=== PATIENT | female | born 1985 | race Caucasian/White ===

== ENCOUNTER → 2017-02-05 | Outpatient (CLI) | payer OTHER | LOC: FIMAGING 09:36 | PROVIDERS: ATTEND Obstetrics & Gynecology | DX: O35.8XX0 Maternal care for other (suspected) fetal abnormality and damage, not applicable or unspecified (principal); Z3A.32 32 weeks gestation of pregnancy; Z87.59 Personal history of other complications of pregnancy, childbirth and the puerperium ==

== ENCOUNTER 2017-03-20 16:52 | Observation (INO) | payer OTHER ==
[2017-03-20 18:34] LABS: % IMMATURE GRANULYOCYTES 1.6 % (0.0-1.1); ABSOLUTE IMMATURE GRANULOCYTES 0.13 10^3/uL (0.00-0.10); ADD DIFF? NO; ADD MORPH? NO; ADD SCAN? NO; ATYPICAL LYMPHOCYTE FLAG 20 (0-99); FRAGMENT RBC FLAG 0 (0-99); HEMATOCRIT 35.1 % (38.0-47.0); HEMOGLOBIN 12.4 g/dL (12.6-16.3); LEFT SHIFT FLG 10 (0-99); LIPEMIA HEMOLYSIS FLAG 90 (0-99); MEAN CELL HEMOGLOBIN CONCENTR. 35.3 g/dL (32.4-36.7); MEAN CELL VOLUME 90.5 fL (81.5-99.8); MEAN PLATELET VOLUME 12.4 fL (8.7-11.7); PLATELET CLUMPS FLAG 10 (0-99); PLATELET COUNT 143 10^3/uL (150-400); RED BLOOD CELL COUNT 3.88 10^6/uL (4.18-5.33); RED CELL DISTRIBUTION WIDTH 12.6 % (11.5-15.2)
[2017-03-20 18:39] LABS: ALANINE AMINOTRANSFERASE 27 IU/L (9-52); ASPARTATE AMINOTRANSFERASE 23 IU/L (14-46); BILIRUBIN,TOTAL 0.2 mg/dL (0.1-1.4); BILIRUBIN-CONJUGATED 0.1 mg/dL (0.0-0.5); BILIRUBIN-UNCONJUGATED 0.1 mg/dL (0.0-1.1); CREATININE 0.6 mg/dL (0.6-1.0); GLOMERULAR FILTRATION RATE > 60; LACTATE DEHYDROGENASE 331 IU/L (313-618); URIC ACID 3.6 mg/dL (2.5-6.8)
== END 2017-03-20 19:20 | disposition home or self-care (01) ==
LOC: FLD 16:52
PROVIDERS: ADMIT Obstetrics & Gynecology; ATTEND Obstetrics & Gynecology
DX: O28.9 Unspecified abnormal findings on antenatal screening of mother (principal); R03.0 Elevated blood-pressure reading, without diagnosis of hypertension; Z3A.38 38 weeks gestation of pregnancy
CPT/HCPCS: 59025; G0378

== ENCOUNTER 2017-03-21 00:52 | Inpatient (IN) | payer OTHER ==
[2017-03-21] MEDS ORDERED: HYDROCODONE/APAP 5/325 TAB PO ONE (01:30)
[2017-03-21 01:40] LABS: % IMMATURE GRANULYOCYTES 1.6 % (0.0-1.1); ABSOLUTE IMMATURE GRANULOCYTES 0.15 10^3/uL (0.00-0.10); ADD DIFF? NO; ADD MORPH? NO; ADD SCAN? NO; ATYPICAL LYMPHOCYTE FLAG 20 (0-99); FRAGMENT RBC FLAG 0 (0-99); HEMATOCRIT 34.4 % (38.0-47.0); HEMOGLOBIN 12.1 g/dL (12.6-16.3); LEFT SHIFT FLG 10 (0-99); LIPEMIA HEMOLYSIS FLAG 90 (0-99); MEAN CELL HEMOGLOBIN 31.9 pg (27.9-34.1); MEAN CELL HEMOGLOBIN CONCENTR. 35.2 g/dL (32.4-36.7); MEAN CELL VOLUME 90.8 fL (81.5-99.8); PLATELET CLUMPS FLAG 0 (0-99); PLATELET COUNT 112 10^3/uL (150-400); RED BLOOD CELL COUNT 3.79 10^6/uL (4.18-5.33); RED CELL DISTRIBUTION WIDTH 12.7 % (11.5-15.2)
[2017-03-21 01:55] LABS: ALANINE AMINOTRANSFERASE 29 IU/L (9-52); ASPARTATE AMINOTRANSFERASE 20 IU/L (14-46); CREATININE 0.8 mg/dL (0.6-1.0); GLOMERULAR FILTRATION RATE > 60; LACTATE DEHYDROGENASE 317 IU/L (313-618); URIC ACID 4.2 mg/dL (2.5-6.8)
[2017-03-21] MEDS: CALCIUM CARBONATE 500 MG CHEWABLE TAB PO PRN (02:00)
[2017-03-21] MEDS ORDERED: ONDANSETRON DISINTEGRATING 4 MG TAB PO ONE (02:00)
[2017-03-21] MEDS ORDERED: ACETAMINOPHEN 500 MG TAB PO ONE (02:30)
[2017-03-21] MEDS ORDERED: fentaNYL 100 MCG/2 ML INJ IVP ONE ×2 (02:30→04:45)
[2017-03-21] MEDS ORDERED: LR 500 ML IV ONE (02:30)
--- NOTE | 2017-03-21 03:18 | EDPHY ---
H & P Smoking Status: Never smoked Allergies/Adverse Reactions: amoxicillin [Amoxicillin] Allergy (Severe, Verified 06/20/14 11:17) Rash Sulfa (Sulfonamide Antibiotics) Allergy (Severe, Verified 06/20/14 11:17) Rash reishi mushroom [mushrooms] Allergy (Verified 10/07/14 19:11) quinoa Allergy (Uncoded 10/07/14 19:12) Home Medications: Medication Instructions Recorded Tablet 1 tab PO DAILY 06/20/14 Biotin/Calcium Carbonate [Biotin 1 tab PO DAILY 10/07/14 800 Mcg Tablet] Calcium Carbonate [Tums 500MG (*)] 1 tab PO PRN PRN 10/07/14 Ranitidine HCl [Zantac 75] 1 tab PO PRN PRN 10/07/14 Iron Polysacch/Iron Heme Polyp 28 mg PO DAILY #30 tab 10/12/14 [Bifera] Medical Decision Making ED Course/Re-evaluation: Asked to consult on the patient from labor and delivery. This is a 31-year-old woman who is 29 weeks presenting with several days of worsening headache stiff neck and fever. She was seen at [facility] earlier this evening and discharge with her symptoms worsening. Providers are concerned about possibility of encephalitis or meningitis and centered out for for LP and further evaluation. Gen: Awake, Alert, No Distress HEENT: Nose: no rhinorrhea Eyes: PERRLA, EOMI Mouth: Moist mucosa Neck: Moderate meningismus, no JVD Chest: nontender, lungs clear to auscultation Heart: S1, S2 normal, no murmur Abd: Gravid uterus consistent with dates Back: no CVA tenderness, no midline tenderness Ext: no edema, non-tender Skin: no rash Neuro: CN II-XII intact, Sensation grossly intact, Strength 5/5 in bilateral upper and lower extremities Procedure: Lumbar puncture. Indication: Fever, stiff neck, headache After verbal informed consent from patient explaining the risks including infection, bleeding, and neurologic damage, a lumbar puncture was performed after the patient was prepped and draped in the usual fashion. The back was anesthetized with 1% lidocaine. Approximately 4 cc of clear fluid was obtained. Opening pressure was not obtained. There were no complications. The procedure was performed by myself. CSF sent to the lab. Results will be followed by the labor and delivery team. Patient tolerated procedure well without complications. 0645 CSF results noted. Consistent with a viral meningitis. I have confirmed with the labor and delivery floor that the they have identified those results and are treating accordingly. Dr. Brandon is aware. - Data Points Laboratory Results: Laboratory Results 03/21/17 01:30 03/21/17 01:30 03/21/17 03/21/17 03/21/17 02:10 01:30 01:30 WBC 9.25 10^3/uL 10^3/uL (3.80-9.50) RBC 3.79 10^6/uL L 10^6/uL (4.18-5.33) Hgb 12.1 g/dL L g/dL (12.6-16.3) Hct 34.4 % L % (38.0-47.0) MCV 90.8 fL fL (81.5-99.8) MCH 31.9 pg pg (27.9-34.1) MCHC 35.2 g/dL g/dL (32.4-36.7) RDW 12.7 % % (11.5-15.2) Plt Count 112 10^3/uL L 10^3/uL (150-400) MPV 12.0 fL H fL (8.7-11.7) Neut % (Auto) 72.3 % % (39.3-74.2) Lymph % (Auto) 15.1 % % (15.0-45.0) Glenn % (Auto) 9.5 % % (4.5-13.0) Eos % (Auto) 1.0 % % (0.6-7.6) Baso % (Auto) 0.5 % % (0.3-1.7) Nucleat RBC Rel Count 0.0 % % (0.0-0.2) Absolute Neuts (auto) 6.68 10^3/uL H 10^3/uL (1.70-6.50) Absolute Lymphs (auto) 1.40 10^3/uL 10^3/uL (1.00-3.00) Absolute Monos (auto) 0.88 10^3/uL H 10^3/uL (0.30-0.80) Absolute Eos (auto) 0.09 10^3/uL 10^3/uL (0.03-0.40) Absolute Basos (auto) 0.05 10^3/uL 10^3/uL (0.02-0.10) Absolute Nucleated RBC 0.00 10^3/uL 10^3/uL (0-0.01) Immature Gran % 1.6 % H % (0.0-1.1) Immature Gran # 0.15 10^3/uL H 10^3/uL (0.00-0.10) BUN 10 mg/dL mg/dL (7-23) Creatinine 0.8 mg/dL mg/dL (0.6-1.0) Estimated GFR > 60 Uric Acid 4.2 mg/dL mg/dL (2.5-6.8) AST 20 IU/L IU/L (14-46) ALT 29 IU/L IU/L (9-52) Lactate Dehydrogenase 317 IU/L IU/L (313-618) Nasal Influenza A PCR NEGATIVE FOR FLU A (NEGATIVE) Nasal Influenza B PCR NEGATIVE FOR FLU B (NEGATIVE) Medications Given: Calcium Carbonate (Tums) 500 - 1,000 mg PO Q4 PRN PRN Reason: HEARTBURN Stop: 09/17/17 01:52 Last Admin: 03/21/17 02:00 Dose: 500 mg Discontinued Medications Acetaminophen (Tylenol) 500 mg PO ONCE ONE Stop: 03/21/17 02:31 Last Admin: 03/21/17 02:27 Dose: 500 mg Hydrocodone Bitart/Acetaminophen ([place] 5/325) 1 tab PO ONCE ONE Stop: 03/21/17 01:31 Last Admin: 03/21/17 01:50 Dose: 1 tab Fentanyl (Sublimaze) 50 mcg IVP ONCE ONE Stop: 03/21/17 02:31 Last Admin: 03/21/17 02:27 Dose: 50 mcg Ondansetron HCl (Zofran Odt) 4 mg PO ONCE ONE Stop: 03/21/17 02:01 Last Admin: 03/21/17 01:59 Dose: 4 mg
[2017-03-21 03:37] LABS: CSF APPEARANCE CLEAR (CLEAR); CSF COLOR COLORLESS (COLORLESS)
[2017-03-21 03:45] LABS: PROTEIN, CSF 50 mg/dL (12-60)
[2017-03-21 03:46] LABS: WBC, CSF 54 /mm3 (0-5)
[2017-03-21 03:50] LABS: WBC, CSF 72 /mm3 (0-5)
--- NOTE | 2017-03-21 03:54 | GHP ---
[f rep st] PREOP HISTORY AND PHYSICAL DATE OF ADMISSION: 03/21/2017 HISTORY OF PRESENT ILLNESS: The patient is a 31-year-old, G2, P1, at 38+ weeks gestation, with an es timated due date of 03/29/2017, who presents with intense headache as well as nausea and lightheadedn ess. The patient was evaluated earlier today due to headache as well as slightly elevated blood pres sures. She had PIH evaluation which showed normal lab values except for slight drop in her platelet level from 204 to 143. Everything else was normal and the patient's blood pressures were 120s to 130 s over 70s to 80s. The patient was given reassurances and advised to follow up the following day for repeat labs. The patient reports she went home and had dinner and then took Unisom and Tylenol to t ry the rest approximately 8:30. She was able to sleep a bit, but woke up with an intense headache a bit after midnight with nausea and feeling feverish. Patient, upon admission, describes the worst he adache in her life and does admit to a history of migraines, but this does not feel typical of her mi graines. She reports an extremely uncomfortable neck when she flexes her neck. She has been having nausea, but has not thrown up. She has felt feverish with achiness all over. The patient has been h aving positive movement and denies any contractions. She has not had any bleeding. The patien t denies anyone else in the close family that is sick, but was exposed to a lot of people over Thanks giving. CARE: The patient has been followed with [facility] since 8 weeks gestation. Th e patient had normal 1st trimester assessments with verified testing and the triple screen. The shania ent had a referral to [facility] due to history of IUGR with her last . The early ultrasound was n ormal except for placenta previa but this was found to resolve with later ultrasounds. The estimated weight at the 20-week ultrasound showed a 13% estimated weight. The placenta was flatwork tier ior, but no longer previa. The baby was noted to have a right clubbed foot and the left was normal. Patient had a full evaluation at [facility] and the followup growth was 18%. All other anatomy was felt to be normal. The patient was advised to be on low-dose aspirin, which she has been on up till about 2 weeks ago. The patient has a history of antiphospholipid antibody anti-Ro and anti-La, whic h were all negative. The patient had an amniocentesis due to the clubfoot and polyhydramnios that de veloped, but the full chromosomes of the amnio were normal. The baby also showed a large cavum septu m pellucidum, a but otherwise the brain tissue was normal. It was suspected that this was a normal v ariant. [facility] regarding the clubfoot and a plan was made for postdelivery. Another followup ultrasound was done at 36 weeks and the estimated weight was 37th percentile, placenta was grade 2, POOL was 19 cm. Through the , the patient has generally had pressures from 90s to 100s over 50s to 60s. The patient has not had migraines thro ugh this until her intense headache today. PENATAL LABS: Maternal blood type B positive, negative antibody screen. RPR nonreactive. Rubella i mmune. Hepatitis B surface antigen negative. HIV negative. Cystic fibrosis, SMA, fragile X, all ne gative. Thyroid testing normal. Parvovirus nonimmune. Urinalysis and culture were negative. Pap s mear normal. Gonorrhea and chlamydia negative. Verified testing was normal with MSAFP negative. On e-hour Glucola was normal. Hematocrit was 34%. GBS culture negative. PAST MEDICAL HISTORY: History of pyelonephritis in 2004, at which time the patient was hospitalized. History of "borderline lupus" diagnosed in 2013 with a positive HILDA and slightly positive anticardi olipin antibody. History of migraines, but none since . Patient with situational anxiety. PAST SURGICAL HISTORY: Odontectomy and oral surgery. History of several concussions and fractures o f extremities. HISTORY: In September 2014, a viable male at 6.5 pounds, delivered at 38 weeks and 3 days after an induction of labor due to oligohydramnios and increased uterine Dopplers. The patient had an epi dural and delivered vaginally. ALLERGIES: Sulfa causing a rash and amoxicillin causing nausea, vomiting, and diarrhea. CURRENT MEDICATIONS: vitamins. Had Tylenol at 8:30 p.m. SOCIAL HISTORY: The patient is , lives with her and their son. Patient is a nonsmoke r. No alcohol or drug use. REVIEW OF SYSTEMS: Performed and 10-point review completed and pertinent positives and negatives not ed above. PHYSICAL EXAM: GENERAL: Upon admission, the patient is a well-developed, well-nourished white femal e. The patient looks to be in misery with an intense headache and has her head covered, lying down. VITAL SIGNS: The patient's initial blood pressure was 99/55 with temp 37.3 at 0100. Repeat temp at 0215 is 39.3 and blood pressure 119/66. The patient had a [place] upon admission and Zofran ODT. Yandy cerrato had laboratory drawn and was given IV fluids and had 50 mcg of fentanyl, which was beginning to improve headache slightly. She was given another 500 of Tylenol approximately 2:30. NECK: The shanai ent had intense pain in her neck with flexion of her neck. It was not point tender to touch. LUNGS: The patient's lungs were clear to auscultation bilaterally. CARDIOVASCULAR: Regular rate and rhyt hm. heart tones initially revealed very low variability; however, improved to moderate variabi lity after the first hour of monitoring. Baseline in the 140s with accelerations. There are no dece lerations noted. No contractions noted. PELVIC: Deferred. EXTREMITIES: Nontender. ASSESSMENT: Intrauterine at 38+ weeks gestation, severe headache, nausea, fever of 39.3, n maximo tenderness. -induced hypertension values revealed that the white count was essentially stable and normal at 9.25. Liver function tests normal and unchanged. Uric acid with slight increas e from 3.6 to 4.2. Her platelet level had dropped from 143 to 112. Hematocrit was 34%. A nasal flu swab was taken and sent to the lab. PLAN: After discussion with the emergency room physician, the patient is taken down to the emergency room for evaluation of headache and neck pain with likely needing a spinal tap. The patient will quiroz ve continuous monitoring down in the emergency room. Essentially the blood pressure is normal and the labs are normal except for the drop in platelets. I do not suspect preeclampsia as the cause of this headache. We will evaluate further after meningitis is ruled out. /[id number]/MODL
[2017-03-21] MEDS: fentaNYL 100 MCG/2 ML INJ IVP PRN ×4 (05:12→09:00)
[2017-03-21 05:47] LABS: % IMMATURE GRANULYOCYTES 1.3 % (0.0-1.1); ABSOLUTE IMMATURE GRANULOCYTES 0.11 10^3/uL (0.00-0.10); ADD DIFF? NO; ADD MORPH? NO; ADD SCAN? NO; ATYPICAL LYMPHOCYTE FLAG 10 (0-99); FRAGMENT RBC FLAG 0 (0-99); HEMATOCRIT 32.6 % (38.0-47.0); HEMOGLOBIN 11.5 g/dL (12.6-16.3); LEFT SHIFT FLG 10 (0-99); LIPEMIA HEMOLYSIS FLAG 90 (0-99); MEAN CELL HEMOGLOBIN CONCENTR. 35.3 g/dL (32.4-36.7); MEAN CELL VOLUME 90.8 fL (81.5-99.8); MEAN PLATELET VOLUME 12.2 fL (8.7-11.7); PLATELET CLUMPS FLAG 0 (0-99); PLATELET COUNT 112 10^3/uL (150-400); RED BLOOD CELL COUNT 3.59 10^6/uL (4.18-5.33); RED CELL DISTRIBUTION WIDTH 12.6 % (11.5-15.2)
[2017-03-21 05:59] LABS: ALANINE AMINOTRANSFERASE 28 IU/L (9-52); ASPARTATE AMINOTRANSFERASE 20 IU/L (14-46); BILIRUBIN-UNCONJUGATED 0.1 mg/dL (0.0-1.1); CREATININE 0.7 mg/dL (0.6-1.0); GLOMERULAR FILTRATION RATE > 60; LACTATE DEHYDROGENASE 338 IU/L (313-618); URIC ACID 3.7 mg/dL (2.5-6.8)
[2017-03-21 06:04] LABS: BILIRUBIN,TOTAL 0.1 mg/dL (0.1-1.4)
[2017-03-21] MEDS: ACETAMINOPHEN 500 MG TAB PO PRN ×2 (08:37→18:42)
[2017-03-21] MEDS: cefTRIAXone 2 GM in D5W 50 ML IV SCH ×2 (08:45→20:54)
[2017-03-21 10:00] LABS: ALANINE AMINOTRANSFERASE 25 IU/L (9-52); ALBUMIN 2.6 g/dL (3.5-5.0); ALKALINE PHOSPHATASE 349 IU/L (38-126); ANION GAP 7 mEq/L (8-16); ASPARTATE AMINOTRANSFERASE 21 IU/L (14-46); CALCIUM 8.4 mg/dL (8.5-10.4); CARBON DIOXIDE 19 mEq/l (22-31); CHLORIDE 107 mEq/L (97-110); CREATININE 0.7 mg/dL (0.6-1.0); GLOMERULAR FILTRATION RATE > 60; GLUCOSE 87 mg/dL (70-100); SODIUM 133 mEq/L (134-144)
[2017-03-21 10:12] LABS: BILIRUBIN,TOTAL < 0.1 mg/dL (0.1-1.4)
[2017-03-21] MEDS ORDERED: HYDROmorphONE/DILAUDID 2 MG/ML INJ IVP ONE (12:45)
[2017-03-21] MEDS ORDERED: METOCLOPRAMIDE 10 MG/2 ML VIAL IVP PRN (12:55)
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
[2017-03-21] MEDS: ACETAMINOPHEN 325 MG TAB PO PRN (15:40)
[2017-03-21] MEDS ORDERED: HYDROmorphONE/DILAUDID 1 MG/ML INJ ONE (18:47)
[2017-03-21] MEDS ORDERED: PROMETHAZINE HCL 25 MG/ML INJ IVP ONE (19:14)
[2017-03-21] MEDS ORDERED: NALOXONE HCL 0.4 MG/ML INJ IVP PRN (19:23)
[2017-03-21] MEDS ORDERED: HYDROmorphONE/DILAUDID 6 MG/30 ML PCA IV PRN (19:23)
[2017-03-21] MEDS ORDERED: HYDROmorphONE/DILAUDID 1 MG/ML INJ IVP ONE (19:30)
--- NOTE | 2017-03-21 20:02 | OBPROG ---
Labor Progress Note Assessment/Plan: Assessment: at 38 6/7 weeks presumptive viral meningitis Plan: close surveillance symptomatic relief ceftriaxone 03/21/17 19:49 Subjective/Intrapartum Course: 03/21/17 20:02 I have seen and evaluated patient multiple times today and havent written a note. I initially evaluated the patient at 7 am. she was complaining about a persistent severe headache. due to concerns of possible stroke a stroke alert was called and the patient was transported to [facility]. A CT scan and an MRI were obtained which both ruled out an intracranial process. I consulted neurology and discussed the LP findings. he recommended starting IV ceftriaxone and continue it until culture results are available. ID was consulted. presumptive diagnosis of viral meningitis was given - but they agree to continue antibiotics until cultures are back. MFM was consulted who agreed with management plan and continued close observation. status remains reassuring. patient was given fentanyl earlier in the day which provided temporary relief. she was then given morphine which helped a bit more than fentanyl. ultimately she was given dilaudid which was the most helpful. patient has been resting most of the day but continues to have intermittent severe headaches and nausea and dry heaving. she is tolerating PO liquids and meds. she denies loss of fluid or vaginal bleeding. she has had a tmax of 39.8 which has improved with tylenol. patient was offered to be transferred to [facility] earlier in the day and declined. we discussed continued close observation and supportive care. Objective: 03/21/17 05:30 03/21/17 05:30 Uric Acid 3.7 mg/dL (2.5-6.8) 03/21/17 05:30 Total Bilirubin < 0.1 mg/dL (0.1-1.4) L 03/21/17 05:30 Conjugated Bilirubin 0.0 mg/dL (0.0-0.5) 03/21/17 05:30 Unconjugated Bilirubin 0.1 mg/dL (0.0-1.1) 03/21/17 05:30 AST 21 IU/L (14-46) 03/21/17 05:30 ALT 25 IU/L (9-52) 03/21/17 05:30 Lactate Dehydrogenase 338 IU/L (313-618) 03/21/17 05:30 - SVE Membranes: Intact - FHR Assessment [place] FHR Pattern Variability: Moderate FHR Category: 1 - Physical Exam General Appearance: WD/WN, alert, no apparent distress Neck: supple Respiratory: chest non-tender, lungs clear, normal breath sounds Cardiac/Chest: normal peripheral pulses, regular rate, rhythm, edema Abdomen: normal bowel sounds, non-tender, other (gravid) Extremities: normal range of motion, non-tender, normal inspection, normal capillary refill Back: Normal inspection Skin: normal color, warm/dry Neuro/Psych: no motor/sensory deficits, alert, normal mood/affect, oriented x 3 Oxytocin Orders Assessment - Pre-Induction/Augmentation Assessment Gestational Age: 38 week(s) and 6 day(s) ICD10 Worksheet Patient Problems: Problems Problem Status Onset Fever Acute Severe headache Acute
[2017-03-22] MEDS: ACETAMINOPHEN 500 MG TAB PO PRN ×3 (05:20→17:17)
--- NOTE | 2017-03-22 07:44 | OBPROG ---
Labor Progress Note Assessment/Plan: Assessment: IUP at 39 weeks gestation ROBERT 03/29 viral meningitis however started on Ceftriaxone until cultures return Improved symptoms less of a headache Plan: Continue antibiotics Okay for regular diet Okay for shower Encourage ambulation Continue TID NST 03/22/17 07:42 03/22/17 07:54 Subjective/Intrapartum Course: 03/21/17 20:02 I have seen and evaluated patient multiple times today and havent written a note. I initially evaluated the patient at 7 am. she was complaining about a persistent severe headache. due to concerns of possible stroke a stroke alert was called and the patient was transported to [facility]. A CT scan and an MRI were obtained which both ruled out an intracranial process. I consulted neurology and discussed the LP findings. he recommended starting IV ceftriaxone and continue it until culture results are available. ID was consulted. presumptive diagnosis of viral meningitis was given - but they agree to continue antibiotics until cultures are back. MFM was consulted who agreed with management plan and continued close observation. status remains reassuring. patient was given fentanyl earlier in the day which provided temporary relief. she was then given morphine which helped a bit more than fentanyl. ultimately she was given dilaudid which was the most helpful. patient has been resting most of the day but continues to have intermittent severe headaches and nausea and dry heaving. she is tolerating PO liquids and meds. she denies loss of fluid or vaginal bleeding. she has had a tmax of 39.8 which has improved with tylenol. patient was [facility] in the day and declined. we discussed continued close observation and supportive care. 03/22/17 07:40 Patient is doing well this morning. Ambulating and tolerated diet. Patient up to rest room washing face and brushing teeth. Pt states she feels a lot better. Reactive NST 130's. Objective: 03/21/17 05:30 03/21/17 05:30 Uric Acid 3.7 mg/dL (2.5-6.8) 03/21/17 05:30 Total Bilirubin < 0.1 mg/dL (0.1-1.4) L 03/21/17 05:30 Conjugated Bilirubin 0.0 mg/dL (0.0-0.5) 03/21/17 05:30 Unconjugated Bilirubin 0.1 mg/dL (0.0-1.1) 03/21/17 05:30 AST 21 IU/L (14-46) 03/21/17 05:30 ALT 25 IU/L (9-52) 03/21/17 05:30 Lactate Dehydrogenase 338 IU/L (313-618) 03/21/17 05:30 - SVE Membranes: Intact - FHR Assessment [place] FHR (bpm): 135 FHR Pattern Variability: Moderate FHR Category: 1 - AP Antepartum Course: 03/22/17 07:44 Improved from last night Reactive NST baby doing well No growth so far on blood cultures Low platelet count at 112 will continue to observe PRACTICE [employer] STUDENT TE[employer]ER started last night however will consider weaning and improve headache symptoms Menigitis continue antibiotics Anticipate consult from ID status: Good will delivery for signs and symptoms of distress. - Physical Exam General Appearance: WD/WN, alert Estimated Weight: 2501-3400g Respiratory: chest non-tender, lungs clear, normal breath sounds Cardiac/Chest: normal peripheral pulses, regular rate, rhythm Abdomen: normal bowel sounds, non-tender, soft Extremities: normal range of motion, non-tender Skin: normal color, warm/dry Neuro/Psych: alert, normal mood/affect, oriented x 3 Oxytocin Orders Assessment - Pre-Induction/Augmentation Assessment Gestational Age: 38 week(s) and 6 day(s) - Heart Rate Pattern [place] FHR Baseline (bpm): 135 FHR Category: 1 FHR Pattern Variability: Moderate FHR Accelerations: Present ICD10 Worksheet Patient Problems: Problems Problem Status Onset Fever Acute Meningitis Acute Severe headache Acute - ICD10 Problem Qualifiers (1) Meningitis
[2017-03-22] MEDS: cefTRIAXone 2 GM in D5W 50 ML IV SCH (09:23)
--- NOTE | 2017-03-22 15:27 | PCMIDPN ---
Assessment/Plan: Assessment/Plan: * Meningitis at 38 weeks : CSF with pleocytosis which is neutrophil predominant. CSF and blood cultures are no growth to date. Suspect is most likely viral in etiology despite neutrophilic predominance. Most likely will be due to enterovirus which can present with neutrophil predominance initially and has been circulating within our community. Listeria can cause disease in although typically more problematic earlier during . Given negative CSF cultures will discontinue ceftriaxone. Continue supportive care. Will discontinue droplet precautions given above findings. Clinical findings and expected clinical course were discussed with patient and her father as well as OB staff. Time spent greater than 35 min, of which greater than half was spent in education/counseling/coordination of care related to meningitis in the setting of . 03/22/17 15:24 Subjective: Patient with persistent fever as high as 39.1. Feels poorly during course of fever and has concomitant chills. Headache significantly improved now approximately 5/10 in severity. Overall she feels markedly improved and has been able to take in orally without difficulty. Still has some neck stiffness. History, clinical findings a radiographic findings, and laboratory findings all reviewed. No recent travel. 2-year-old son went home from daycare with vomiting but otherwise did not appear ill prior to going to daycare this a.m.. No unusual animal exposure. No exposure to deli meats or hot dogs. 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 CT of brain without sinusitis Flu by PCR negative - Physical Exam General Appearance: alert, no apparent distress, non-toxic, other (Able to laugh during conversation and examination) EENT: PERRL/EOMI, No scleral icterus, No conjunctival petechiae Respiratory: lungs clear, No respiratory distress Neck: meningismus (Mild) Cardiac/Chest: tachycardia Abdomen: non-tender Skin: No rash, No embolic lesions Neuro/Psych: alert, other (Appropriate interactions), No abnormal CN, No aphasia , No facial droop, No motor weakness ICD10 Worksheet Patient Problems: Problems Problem Status Onset Fever Acute Meningitis Acute Severe headache Acute
[2017-03-22] MEDS ORDERED: PROMETHAZINE HCL 25 MG/ML INJ IVP ONE (16:11)
[2017-03-22 16:57] LABS: GLUCOSE 87 mg/dL (70-100)
[2017-03-23] MEDS ORDERED: PROMETHAZINE HCL 25 MG/ML INJ IVP ONE (00:15)
[2017-03-23] MEDS: ACETAMINOPHEN 325 MG TAB PO PRN ×2 (01:13→12:13)
[2017-03-23] MEDS ORDERED: ONDANSETRON 4 MG/2 ML VIAL IVP PRN (01:28)
[2017-03-23] MEDS: ZOLPIDEM TARTRATE 5 MG TAB PO PRN ×2 (01:36→21:08)
[2017-03-23 07:48] LABS: % IMMATURE GRANULYOCYTES 1.7 % (0.0-1.1); ABSOLUTE IMMATURE GRANULOCYTES 0.13 10^3/uL (0.00-0.10); ADD DIFF? NO; ADD MORPH? NO; ADD SCAN? NO; ATYPICAL LYMPHOCYTE FLAG 0 (0-99); FRAGMENT RBC FLAG 0 (0-99); HEMATOCRIT 33.6 % (38.0-47.0); HEMOGLOBIN 11.6 g/dL (12.6-16.3); LEFT SHIFT FLG 10 (0-99); LIPEMIA HEMOLYSIS FLAG 90 (0-99); MEAN CELL HEMOGLOBIN CONCENTR. 34.5 g/dL (32.4-36.7); MEAN CELL VOLUME 92.6 fL (81.5-99.8); MEAN PLATELET VOLUME 11.5 fL (8.7-11.7); PLATELET CLUMPS FLAG 0 (0-99); PLATELET COUNT 103 10^3/uL (150-400); RED BLOOD CELL COUNT 3.63 10^6/uL (4.18-5.33); RED CELL DISTRIBUTION WIDTH 12.8 % (11.5-15.2)
--- NOTE | 2017-03-23 08:05 | OBPROG ---
Labor Progress Note Assessment/Plan: Assessment: IUP at 39 1/7weeks gestation ROBERT 03/29 viral meningitis Improved symptoms less of a headache diarrhea and nausea overnight however improved none for several hours Min variability on NST BPP /8 Assessment/Plan:per ID * Meningitis at 38 weeks : CSF with pleocytosis which is neutrophil predominant. CSF and blood cultures are no growth to date. Suspect is most likely viral in etiology despite neutrophilic predominance. Most likely will be due to enterovirus which can present with neutrophil predominance initially and has been circulating within our community. Listeria can cause disease in although typically more problematic earlier during . Given negative CSF cultures will discontinue ceftriaxone. Continue supportive care. Will discontinue droplet precautions given above findings. Plan: Okay for regular diet Okay for shower Encourage ambulation Continue TID NST 03/23/17 08:01 Subjective/Intrapartum Course: 03/21/17 20:02 I have seen and evaluated patient multiple times today and havent written a note. I initially evaluated the patient at 7 am. she was complaining about a persistent severe headache. due to concerns of possible stroke a stroke alert was called and the patient was transported to [facility] for rehabilitation. A CT scan and an MRI were obtained which both ruled out an intracranial process. I consulted neurology and discussed the LP findings. he recommended starting IV ceftriaxone and continue it until culture results are available. ID was consulted. presumptive diagnosis of viral meningitis was given - but they agree to continue antibiotics until cultures are back. MFM was consulted who agreed with management plan and continued close observation. status remains reassuring. patient was given fentanyl earlier in the day which provided temporary relief. she was then given morphine which helped a bit more than fentanyl. ultimately she was given dilaudid which was the most helpful. patient has been resting most of the day but continues to have intermittent severe headaches and nausea and dry heaving. she is tolerating PO liquids and meds. she denies loss of fluid or vaginal bleeding. she has had a tmax of 39.8 which has improved with tylenol. patient was offered to be transferred to [facility] earlier in the day and declined. we discussed continued close observation and supportive care. 03/22/17 07:40 Patient is doing well this morning. Ambulating and tolerated diet. Patient up to rest room washing face and brushing teeth. Pt states she feels a lot better. Reactive NST 130's. 03/23/17 08:04 Patient had nausea and diarrhea overnight same as 2 yr old son. Now feeling much better wanting to go outside for fresh air and poss heplock IV. No symptoms for several hours Objective: 03/23/17 07:34 03/21/17 05:30 Uric Acid 3.7 mg/dL (2.5-6.8) 03/21/17 05:30 Total Bilirubin < 0.1 mg/dL (0.1-1.4) L 03/21/17 05:30 Conjugated Bilirubin 0.0 mg/dL (0.0-0.5) 03/21/17 05:30 Unconjugated Bilirubin 0.1 mg/dL (0.0-1.1) 03/21/17 05:30 AST 21 IU/L (14-46) 03/21/17 05:30 ALT 25 IU/L (9-52) 03/21/17 05:30 Lactate Dehydrogenase 338 IU/L (313-618) 03/21/17 05:30 - SVE Membranes: Intact - FHR Assessment Landaverde FHR (bpm): 120 FHR Pattern Variability: Moderate FHR Category: 1 - AP Antepartum Course: 03/22/17 07:44 Improved from last night Reactive NST baby doing well No growth so far on blood cultures Low platelet count at 112 will continue to observe [employer] started last night however will consider weaning and improve headache symptoms Menigitis continue antibiotics Anticipate consult from ID status: Good will delivery for signs and symptoms of distress. - Physical Exam General Appearance: WD/WN Estimated Weight: 2501-3400g Neck: non-tender, full range of motion Respiratory: chest non-tender, lungs clear, normal breath sounds Cardiac/Chest: normal peripheral pulses, regular rate, rhythm, edema Abdomen: normal bowel sounds, non-tender, soft Skin: normal color, warm/dry Neuro/Psych: no motor/sensory deficits, alert, normal mood/affect, oriented x 3 Oxytocin Orders Assessment - Pre-Induction/Augmentation Assessment Gestational Age: 38 week(s) and 6 day(s) Estimated Weight: 2501-3400g ICD10 Worksheet Patient Problems: Problems Problem Status Onset Fever Acute Meningitis Acute Severe headache Acute - ICD10 Problem Qualifiers (1) Meningitis
--- NOTE | 2017-03-23 09:58 | PCMIDPN ---
Assessment/Plan: Assessment/Plan: * Meningitis at 38 weeks : CSF with pleocytosis which is neutrophil predominant. Clinically improved today with no further significant fever and headache markedly decreased. Exam reveals no residual meningismus. CSF and blood cultures remain no growth. Suspect is most likely viral in etiology despite neutrophilic predominance. Most likely will be due to enterovirus which can present with neutrophil predominance initially and has been circulating within our community. Continue supportive care and observation off antibiotics. * Nausea/vomiting/diarrhea: May all be associated with underlying meningitis. Given 2-year-old at home also has similar symptoms will obtain GI pathogen panel by PCR to assess for norovirus or rotavirus. Will initiate droplet and contact precautions pending evaluation (in event norovirus). Also could be antibiotic associated with prior ceftriaxone exposure. Doubt C difficile although will also be assessed by GI pathogen PCR panel. Clinical findings and plan reviewed with patient nursing staff today. 03/23/17 09:55 Subjective: Patient with nausea, vomiting and diarrhea overnight. Headache significantly decreased peaking at 3/10 in severity. Overall feels markedly improved. Last episode of diarrhea this a.m.. No associated abdominal pain. Objective: Microbiology 03/21/17 03:11 Gram Stain - Final Cerebral Spinal Fluid Laboratory Results 03/23/17 07:34 03/21/17 05:30 No antibiotics CSF enterovirus PCR pending Blood culture and CSF culture no growth T 36.5, HR 95, BP 109/67, R 20 Ultrasound shows normal biophysical profile - Physical Exam General Appearance: alert, no apparent distress EENT: pharynx normal, No scleral icterus Respiratory: lungs clear, No respiratory distress Neck: No meningismus Cardiac/Chest: regular rate, rhythm Abdomen: non-tender ICD10 Worksheet Patient Problems: Problems Problem Status Onset Fever Acute Meningitis Acute Severe headache Acute
[2017-03-24] MEDS: ZOLPIDEM TARTRATE 5 MG TAB PO PRN (02:46)
[2017-03-24] MEDS: ACETAMINOPHEN 325 MG TAB PO PRN ×3 (02:47→17:16)
--- NOTE | 2017-03-24 12:59 | PCMIDPN ---
Assessment/Plan: Assessment/Plan: * Meningitis at 38 weeks : Overall improving although some residual vomiting and diarrhea as well as headache. Fever has resolved. CSF and blood cultures are negative. Enterovirus PCR on CSF specimen pending. Continue supportive care. Discharge home when patient feels like she is functional - she plans to get up after lunch in move around as well as go outside to see how she feels about discharge versus continued need for hospitalization. * Nausea/vomiting/diarrhea: May all be associated with underlying meningitis. No GI pathogen panel sample obtained to date. Discussed with patient that if she has recurrent diarrhea to provide sample so further evaluation can be performed. 03/24/17 12:56 Subjective: Patient with some recurrent headache today. Took Ambien twice overnight for insomnia. Feels foggy today. Vomited overnight with 2 episodes of diarrhea earlier today. No abdominal pain. Objective: Microbiology 03/21/17 03:11 Gram Stain - Final Cerebral Spinal Fluid CSF Culture - Final Laboratory Results 03/23/17 07:34 03/21/17 05:30 No antibiotics Blood culture x1 no growth CSF culture no growth Temperature 36.7 degrees, heart rate 71, respiratory rate 18, blood pressure 108 /68 - Physical Exam General Appearance: alert, no apparent distress, non-toxic EENT: No scleral icterus Respiratory: lungs clear Neck: supple, No meningismus Cardiac/Chest: regular rate, rhythm Abdomen: non-tender ICD10 Worksheet Patient Problems: Problems Problem Status Onset Fever Acute Meningitis Acute Severe headache Acute
--- NOTE | 2017-03-24 16:01 | SOAPPROG ---
SOAP Progress Note Assessment/Plan: Assessment: Assessment/Plan: Assessment/Plan: * 31 yo with IUP@ 38wks: cont TID NSTs and PRN * Meningitis: Overall improving although some residual vomiting and diarrhea as well as headache. Fever has resolved. CSF and blood cultures are negative. Enterovirus PCR on CSF specimen pending. Continue supportive care. Discharge home when patient feels like she is functional - she plans to get up after lunch in move around as well as go outside to see how she feels about discharge versus continued need for hospitalization. * Nausea/vomiting/diarrhea: May all be associated with underlying meningitis. stool sample sent to lab. Advised hydration with electrolyte replacement ( gatorade) 03/24/17 15:57 Subjective: Patient with some recurrent headache today. Took Ambien twice overnight for insomnia. Feels foggy today. Vomited overnight with 2 episodes of diarrhea earlier today. No abdominal pain. Denies any OB complaints (contractions, LOF, VB). Reports +FM. Objective: Microbiology 03/21/17 03:11 Gram Stain - Final Cerebral Spinal Fluid CSF Culture - Final Laboratory Results 03/23/17 07:34 03/21/17 05:30 No antibiotics Blood culture x1 no growth CSF culture no growth Temperature 36.7 degrees, heart rate 71, respiratory rate 18, blood pressure 108 /68 - Time Spent With Patient Time Spent With Patient: 45 min was spent with patient of which >50%, approx 20min, was face to face on counseling and coordination of care - Pending Discharge Pending Discharge Within 24 Hours: No Pending Discharge Within 48 Hours: Yes Pending Discharge Date: 03/26/17 Pending Discharge Time: 11:00 Physical Exam - Physical Exam General Appearance: WD/WN, alert, no apparent distress Neck: supple Respiratory: normal breath sounds Cardiac/Chest: regular rate, rhythm Abdomen: non-tender, soft, other (gravid) Pelvic Exam: deferred Skin: normal color, warm/dry Neuro/Psych: no motor/sensory deficits, alert, normal mood/affect, oriented x 3 ICD10 Worksheet Patient Problems: Problems Problem Status Onset Fever Acute Meningitis Acute Severe headache Acute
[2017-03-24] MEDS: LOPERAMIDE HCL 2 MG CAP PO PRN ×2 (16:16→21:05)
[2017-03-24 17:21] LABS: ENTEROVIRUS BY PCR Positive (Negative); SPECIMEN SOURCE ENTEROVIRUS CSF
[2017-03-24] MEDS: CALCIUM CARBONATE 500 MG CHEWABLE TAB PO PRN (21:05)
[2017-03-25] MEDS ORDERED: SIMETHICONE 80 MG TAB CHEW PO ONE (09:13)
--- NOTE | 2017-03-25 10:13 | SOAPPROG ---
SOAP Progress Note Assessment/Plan: Assessment: 31 y/o @ 39 4/7 weeks with viral meningitis doing much better. Plan: D/c home today to rest. Tylenol prn OCONNOR, and Imodium prn diarrhea. Follow-up @ [facility] this week and gave labor precautions. 03/25/17 10:09 Subjective: Pt is doing much better today. She still reports a low grade OCONNOR, much better than on admission or even than yesterday. She had diarrhea and stomach cramping over the last 2 days which is better as well and today she has an appetite and is eating. She denies contractions and feels good FM. She is ready to d/c home and has an apt scheduled @ [facility] for . Objective: Microbiology 03/24/17 12:35 Gastrointestinal Tract Panel (PCR) - Final Stool No Organism Detected 03/21/17 03:11 Gram Stain - Final Cerebral Spinal Fluid CSF Culture - Final Laboratory Results 03/23/17 07:34 03/21/17 05:30 Physical Exam - Physical Exam General Appearance: WD/WN, alert, no apparent distress Neck: non-tender, full range of motion, supple Respiratory: chest non-tender, lungs clear, normal breath sounds Cardiac/Chest: regular rate, rhythm Abdomen: normal bowel sounds, other (gravid, NT) Pelvic Exam: deferred Extremities: swelling (no), Doris's sign (neg) ICD10 Worksheet Patient Problems: Problems Problem Status Onset Fever Acute Meningitis Acute Severe headache Acute
[2017-03-25] MEDS ORDERED: SIMETHICONE 80 MG TAB CHEW PO SCH (13:00)
== END 2017-03-25 10:00 | disposition home or self-care (01) | DRG 781 ==
LOC: FLD 00:52 → OBSVTOIN 03-22 10:08
PROVIDERS: ADMIT Obstetrics & Gynecology; ATTEND Obstetrics & Gynecology
PROC: 009U3ZX Drainage of Spinal Canal, Percutaneous Approach, Diagnostic (ICD-10-PCS; principal; 2017-03-21)
DX: O98.513 Other viral diseases complicating pregnancy, third trimester (principal); A87.0 Enteroviral meningitis; G93.5 Compression of brain; O99.353 Diseases of the nervous system complicating pregnancy, third trimester; O35.8XX0 Maternal care for other (suspected) fetal abnormality and damage, not applicable or unspecified; O99.343 Other mental disorders complicating pregnancy, third trimester; O21.8 Other vomiting complicating pregnancy; R19.7 Diarrhea, unspecified; F41.1 Generalized anxiety disorder; Z3A.38 38 weeks gestation of pregnancy; Z87.820 Personal history of traumatic brain injury
CPT/HCPCS: 82947-QW; 87798-90; J0696; J1170; J2550; J2765; J3010

== ENCOUNTER 2017-04-03 05:54 | Inpatient (IN) | payer OTHER ==
[2017-04-03] MEDS ORDERED: OXYTOCIN 30 UNIT in NS 500 ML IV SCH (06:45)
[2017-04-03 07:09] LABS: % IMMATURE GRANULYOCYTES 1.5 % (0.0-1.1); ABSOLUTE IMMATURE GRANULOCYTES 0.14 10^3/uL (0.00-0.10); ADD DIFF? NO; ADD MORPH? NO; ADD SCAN? NO; ATYPICAL LYMPHOCYTE FLAG 10 (0-99); FRAGMENT RBC FLAG 0 (0-99); HEMATOCRIT 35.9 % (38.0-47.0); HEMOGLOBIN 12.7 g/dL (12.6-16.3); LEFT SHIFT FLG 10 (0-99); LIPEMIA HEMOLYSIS FLAG 90 (0-99); MEAN CELL HEMOGLOBIN 32.2 pg (27.9-34.1); MEAN CELL HEMOGLOBIN CONCENTR. 35.4 g/dL (32.4-36.7); MEAN CELL VOLUME 90.9 fL (81.5-99.8); MEAN PLATELET VOLUME 12.3 fL (8.7-11.7); PLATELET CLUMPS FLAG 0 (0-99); PLATELET COUNT 170 10^3/uL (150-400); RED BLOOD CELL COUNT 3.95 10^6/uL (4.18-5.33); RED CELL DISTRIBUTION WIDTH 12.6 % (11.5-15.2)
[2017-04-03] MEDS ORDERED: MISOPROSTOL 200 MCG TAB ONE (08:22)
[2017-04-03] MEDS ORDERED: OLIVE OIL 118 ML BTL ONE (08:22)
[2017-04-03] MEDS ORDERED: OXYTOCIN 10 UNIT/ML VIAL ONE (08:22)
[2017-04-03] MEDS ORDERED: TERBUTALINE SULFATE 1 MG/ML VIAL ONE (08:22)
[2017-04-03] MEDS ORDERED: AMMONIA AROMATIC 1 EACH AMP IH ONE (08:22)
[2017-04-03] MEDS ORDERED: LIDOCAINE 1% 300 MG/30 ML SDV ONE (08:22)
[2017-04-03] MEDS ORDERED: EPSOM SALT 454 GM TP PRN (08:52)
[2017-04-03] MEDS ORDERED: AMMONIA AROMATIC 1 EACH AMP IH PRN (08:52)
[2017-04-03] MEDS ORDERED: LR 1,000 ML IV PRN (08:52)
[2017-04-03] MEDS ORDERED: TERBUTALINE SULFATE 1 MG/ML VIAL IV PRN (08:52)
[2017-04-03] MEDS ORDERED: OLIVE OIL 118 ML BTL MISC PRN (08:52)
[2017-04-03] MEDS ORDERED: OXYTOCIN 20 UNIT in LR 1,000 ML IV PRN (08:52)
[2017-04-03] MEDS ORDERED: fentaNYL 100 MCG/2 ML INJ ONE (10:28)
[2017-04-03] MEDS ORDERED: PHENYLEPHRINE HCL 100 MCG/ML SYR ONE (10:28)
[2017-04-03] MEDS ORDERED: BUPIVACAINE 0.25% 30 ML SDV ONE ×2 (10:31→13:39)
[2017-04-03] MEDS ORDERED: CALCIUM CARBONATE 500 MG CHEWABLE TAB PO ONE (10:34)
[2017-04-03] MEDS ORDERED: FENT2MCG/ML&BUP0.1% 1 EA, fentaNYL 200 MCG, BUPIVACAINE 0.5% 20 ML in NS 100 ML IV SCH (10:40)
[2017-04-03] MEDS ORDERED: NARCOTIC DRIP BAG-TOTAL ALL TYPES IV PRN (10:40)
[2017-04-03] MEDS ORDERED: FENT2MCG/ML&BUP0.1% 1 EA, fentaNYL 200 MCG, BUPIVACAINE 0.5% 20 ML in NS 100 ML EP SCH (11:00)
[2017-04-03] MEDS ORDERED: LR 500 ML IV SCH (11:30)
--- NOTE | 2017-04-03 11:48 | PREANESOB ---
Obstetric Pre-Anesthesia Info - General Info Proposed Procedure: BRANDIE : 2 Para: 0 ROBERT: 03/29/17 Gestational Age: 40 week(s) and 5 day(s) - Info Status: Full Term Monitors: External FHR Baseline (bpm): 130 FHR Pattern: Reassuring - Labor Status Magnesium Sulfate in Use: Yes Indications for Labor Analgesia: Pain Control Labor Epidural: Proposed (PT for BRANDIE. History of meningitis s/p LP over a week ago but now asymptomatic with normal VSS. Previous LP site is clear.) Anesthesia Allergies/Adverse Reactions: Allergy/AdvReac Type Severity Reaction Status Date / Time amoxicillin [Amoxicillin] Allergy Severe Rash Verified 06/20/14 11:17 Sulfa (Sulfonamide Allergy Severe Rash Verified 06/20/14 11:17 Antibiotics) reishi mushroom [mushrooms] Allergy Verified 10/07/14 19:11 quinoa Allergy Uncoded 10/07/14 19:12 Home Medications: Medication Instructions Recorded Tablet 1 tab PO DAILY 06/20/14 Biotin/Calcium Carbonate [Biotin 1 tab PO DAILY 10/07/14 800 Mcg Tablet] Calcium Carbonate [Tums 500MG (*)] 1 tab PO PRN PRN 10/07/14 Ranitidine HCl [Zantac 75] 1 tab PO PRN PRN 10/07/14 Iron Polysacch/Iron Heme Polyp 28 mg PO DAILY #30 tab 10/12/14 [Bifera] Visit Medications: Generic Name Dose Route Start Last Admin Trade Name Freq PRN Reason Stop Dose Admin Ammonia (Aromatic Spirit) 1 each 04/03/17 08:52 Ammonia Aromatic IH 04/13/17 08:51 ONCE PRN Fainting Oxytocin 30 unit/ Sodium 503 mls @ 0 mls/hr 04/03/17 06:45 Chloride IV 09/30/17 06:44 CONT JENNIFER Protocol Per Protocol Lactated Ringer's 1,000 mls @ 0 mls/hr 04/03/17 08:52 Lr IV 04/04/17 08:51 PRN PRN SEE PROTOCOL CONDITIONS Protocol Per Protocol Oxytocin 20 unit/ Lactated 1,002 mls @ 150 mls/hr 04/03/17 08:52 Ringer's IV PRN PRN Post- bleeding Fentanyl/Bupivacaine HCl 1 ea/ 100 mls @ mls/hr 04/03/17 11:00 Fentanyl 200 mcg/ Bupivacaine EP 04/13/17 10:39 HCl 20 ml/ Sodium Chloride AD JENNIFER As Directed Lactated Ringer's 500 mls @ 0 mls/hr 04/03/17 11:30 Lr IV 09/30/17 11:29 CONT JENNIFER As Directed Ibuprofen 600 mg 04/03/17 08:52 Motrin PO 09/30/17 08:51 Q6HRS PRN post , inflammation Magnesium Sulfate 454 gm 04/03/17 08:52 Epsom Salt TP 09/30/17 08:51 Q1H PRN perineal discomfort Miscellaneous Medication 1 ea 04/03/17 10:40 Narcotic Drip-Total All Types IV 09/30/17 10:39 PRN PRN Pyxis removal [place] Oil 118 ml 04/03/17 08:52 Sweet Oil MISC 09/30/17 08:51 ONCE PRN perineal massage Terbutaline Sulfate 0.25 mg 04/03/17 08:52 Brethine IV 09/30/17 08:51 ONCE PRN Tachysystole Discontinued Medications Generic Name Dose Route Start Last Admin Trade Name Samuelq PRN Reason Stop Dose Admin Ammonia (Aromatic Spirit) Confirm 04/03/17 08:22 Ammonia Aromatic Administered 04/03/17 08:23 Dose 1 each IH .STK-MED ONE Bupivacaine HCl Confirm 04/03/17 10:31 Sensorcaine 0.25% Sdv Administered 04/03/17 10:32 Dose 30 ml .ROUTE .STK-MED ONE Calcium Carbonate Confirm 04/03/17 10:34 Tums Administered 04/03/17 10:35 Dose 500 mg PO .STK-MED ONE Fentanyl Confirm 04/03/17 10:28 Sublimaze Administered 04/03/17 10:29 Dose 100 mcg .ROUTE .STK-MED ONE Lidocaine HCl Confirm 04/03/17 08:22 Lidocaine Hcl 1% Administered 04/03/17 08:23 Dose 300 mg .ROUTE .STK-MED ONE Misoprostol Confirm 04/03/17 08:22 Cytotec Administered 04/03/17 08:23 Dose 800 mcg .ROUTE .STK-MED ONE [place] Oil Confirm 04/03/17 08:22 Sweet Oil Administered 04/03/17 08:23 Dose 118 ml .ROUTE .STK-MED ONE Oxytocin Confirm 04/03/17 08:22 Pitocin Administered 04/03/17 08:23 Dose 40 unit .ROUTE .STK-MED ONE Phenylephrine HCl Confirm 04/03/17 10:28 Neosynephrine Administered 04/03/17 10:29 Dose 1,000 mcg .ROUTE .STK-MED ONE Terbutaline Sulfate Confirm 04/03/17 08:22 Brethine Administered 04/03/17 08:23 Dose 1 mg .ROUTE .STK-MED ONE - Vital Signs Height/Weight (Nursing): Height 167.64 cm Weight 62.596 kg Labs: 04/03/17 06:43 Patient ABO/Rh B POSITIVE 04/03/17 06:43
--- NOTE | 2017-04-03 14:02 | GHP ---
[f rep st] PREOP HISTORY AND PHYSICAL Amended report DATE OF ADMISSION: 04/03/2017 ADMISSION DIAGNOSIS: Intrauterine at 40-5/7 weeks' gestation. She is here for post-date induction of labor. INDICATIONS: The patient is a 31-year-old 2, para 1-0-0-1 who is 40-5/ 7 weeks' gestation. She presents today for induction of labor for post-dates. The patient's has been complicated by a diagnosis of clubfoot in and borderline polyhydramnios and a large cavum septum pellucidi. She had an amniocentesis, which was negative and the polyhydramnios has resolved. The patient was also diagnosed with viral meningitis at 39 weeks and hospitalized for several days and treated symptomatically. She has substantially improved. The patient is just here for post-dates induction of labor. PAST MEDICAL HISTORY: Anxiety, migraines, alopecia, and questionable lupus with positive HILDA. Anticardiolipin IgG was slightly positive. MEDICATIONS: vitamins and iron. PAST SURGICAL HISTORY: Marcell teeth extraction. ALLERGIES: Sulfa, which causes a rash, and amoxicillin, which causes nausea, vomiting, and diarrhea. SOCIAL HISTORY: The patient works for [employer] at [employer]. She is and lives with her and their other son. She denies tobacco, alcohol, or drug use. FAMILY MEDICAL HISTORY: Noncontributory. SAMPLE SEWER HISTORY: Menarche at age 12. Periods are every 31 to 32 days and last 7 to 8 days. She is 2, para 1-0-0-1. In September of 2014 she had induction of labor followed by spontaneous vaginal delivery at 38-3/7 weeks' gestation of a 6-pound, 6-ounce . She was induced for suspected intrauterine growth restriction. The patient denies a history of any abnormal Pap smears or sexually transmitted diseases. REVIEW OF SYSTEMS: A 10-point review of systems is negative. There is positive movement. No loss of fluid. No vaginal bleeding. No cramping or cam. PHYSICAL EXAM: VITAL SIGNS: Stable. GENERAL APPEARANCE: Alert and oriented x3. PSYCHIATRIC: She has appropriate affect. HEART: Rate is regular. LUNGS : Clear to auscultation bilaterally. ABDOMEN: Gravid, nondistended, and nontender. EXTREMITIES: No calf tenderness or edema. PELVIC: Her cervical exam on admission was 3 cm dilated, 80% effaced, and -2 station. LABS: Blood type B-positive, antibody screen negative, rubella immune , GBS negative, HBsAg negative, and HIV negative. Her 50-gram glucose was 75. She had a negative amniocentesis and a negative Verifi. ASSESSMENT AND PLAN: This is a 31-year-old 2, para 1-0-0-1 who is 40-5/ 7 weeks' gestation and is here for induction of labor. Her membranes were artificially ruptured after she received an epidural. She is on Pitocin and will be managed expectantly. /[id number]/MODL Add acc#, 04/04/17, daja TURPIN
--- NOTE | 2017-04-03 14:29 | OBPROG ---
Labor Progress Note Assessment/Plan: Assessment: Plan: Subjective/Intrapartum Course: 04/03/17 14:29 comfortable with epidural. AROM 1241. rapid progress to complete. Objective: 04/03/17 06:43 Patient ABO/Rh B POSITIVE 04/03/17 06:43 - Procedures Non-surgical Procedures: Amniotomy - AP Antepartum Course: 04/03/17 14:23 initiated care at [facility] at 7 weeks. negative innatal, anatomy ultrasound showed club foot. got perinatology consultation - also found prominent cavum septum pelucidi and polyhydramnios. normal amnio. normal fluid on follow up ultrasounds. viral meningitis at 38 6/7 - hospitalized - severe headache, negative spinal ct and brain imaging. Oxytocin Orders Assessment - Pre-Induction/Augmentation Assessment Gestational Age: 40 week(s) and 5 day(s) ICD10 Worksheet Patient Problems: Problems Problem Status Onset Normal labor Acute
[2017-04-03] MEDS ORDERED: DOCUSATE SODIUM 100 MG CAP PO PRN (14:33)
[2017-04-03] MEDS ORDERED: ACETAMINOPHEN 325 MG TAB PO PRN (14:33)
[2017-04-03] MEDS ORDERED: HYDROCODONE/APAP 5/325 TAB PO PRN (14:33)
[2017-04-03] MEDS ORDERED: HYDROCORTISONE 0.5% CREAM TP PRN (14:33)
--- NOTE | 2017-04-03 14:33 | OBDEL ---
Info Type: Vaginal Presentation at Delivery: Vertex L&D Analgesia/Anesthesia Type: Epidural GBS+: No - Hospital Course Intrapartum: 04/03/17 14:29 comfortable with epidural. AROM 1241. rapid progress to complete. pushed with three contractions. 04/03/17 14:30 Indications for Delivery: Elective Vaginal Delivery - Delivery Provider Delivery Physician/CNM: Indu Colón - Labor and Delivery Onset of Contractions Date: 04/02/17 Onset of Contractions Time: 19:00 Onset of Contractions Type: Induced Rupture of Membranes Date: 04/03/17 Rupture of Membranes Time: 12:41 Rupture of Membranes Type: Artificial Amniotic Fluid Color: Clear Dilation Complete Date: 04/03/17 Dilation Complete Time: 13:55 Placenta Delivery Date: 04/03/17 Placenta Delivery Time: 14:07 Total Hours of Labor: 19 Non-surgical Procedures: Amniotomy Vaginal Sponge Count Correct: Yes Vaginal Needle Count Correct: Yes Vaginal Sweep Performed: Yes EBL: 300 Delivery Events: Nuchal Cord - Medications Labor Augmentation/Induction Methods Used: Pitocin Labor Augmentation/Induction Indication: Post Dates, Elective Data ROBERT: 03/29/17 Gestational Age: 40 week(s) and 5 day(s) Landaverde Delivery Date: 03/29/17 Delivery Time: 14:03 Sex of Infant: Male Score (1 Min): 8 Score (5 Min): 10 ICD10 Worksheet Patient Problems: Problems Problem Status Onset Normal labor Acute
[2017-04-03] MEDS: IBUPROFEN 600 MG TAB PO PRN ×2 (15:11→21:20)
[2017-04-03 21:45] VITALS: RESP 16
[2017-04-04] MEDS: IBUPROFEN 600 MG TAB PO PRN ×4 (03:15→23:19)
--- NOTE | 2017-04-04 15:47 | OBPP ---
Progress Note Assessment/Plan: Assessment: [id number] s/p Plan: routine pp care ambulate cont plan to d/c home tomorrow 04/04/17 15:47 Subjective/ Course: 04/04/17 15:48 pt doing well. reports min pain with . she denies any heavy bleeding/clots. She is without difficulty. Objective: 04/03/17 06:43 Patient ABO/Rh B POSITIVE 04/03/17 06:43 Temp Pulse Resp BP Pulse Ox 35.9 C L 68 16 105/71 96 04/04/17 08:00 04/04/17 08:00 04/04/17 08:00 04/04/17 08:00 04/04/17 08:00 Uterine Position/Fundal Height: Umbilicus -1, Midline Uterine Tone: Firm Physical Exam - Physical Exam Neck: supple Abdomen: non-tender, soft Extremities: normal inspection Skin: normal color, warm/dry Neuro/Psych: no motor/sensory deficits, alert, normal mood/affect, oriented x 3
[2017-04-05] MEDS: IBUPROFEN 600 MG TAB PO PRN (05:16)
--- NOTE | 2017-04-05 07:02 | OBGCSDC ---
General Delivery Information - General Info : 2 Para: 2 Abortions: 0 Type: Vaginal L&D Analgesia/Anesthesia Type: Epidural Admission Date: 04/03/17 Labs: Patient ABO/Rh B POSITIVE 04/03/17 06:43 Hct 35.9 % (38.0-47.0) L 04/03/17 06:43 - Hospital Course Antepartum: 04/03/17 14:23 initiated care at [facility] at 7 weeks. negative innatal, anatomy ultrasound showed club foot. got perinatology consultation - also found prominent cavum septum pelucidi and polyhydramnios. normal amnio. normal fluid on follow up ultrasounds. viral meningitis at 38 6/7 - hospitalized - severe headache, negative spinal ct and brain imaging. Intrapartum: 04/03/17 14:29 comfortable with epidural. AROM 1241. rapid progress to complete. pushed with three contractions. 04/03/17 14:30 : 04/04/17 15:48 pt doing well. reports min pain with . she denies any heavy bleeding/clots. She is without difficulty. 04/05/17 07:01 S) Pt doing well, reports min pain and bleeding. she is ambulating and voiding without difficulty. She is . She desires discharge home today. O) VSS, afebrile constitutional: WNWF, A&Ox3 HEENT: normocephalic, atraumatic, supple Heart: RRR, No murmur Chest: CTA-B Abdomen: Soft, nontender Uterus: Firm at U-2 Lochia: Minimal rubra Perineum: healing well Extremities: Trace edema, and negative Doris's sign Neuro: Grossly normal A) 31-year-old S/P PPD#2 P) Discharge home today Continue Pelvic rest x6wks Discussed danger signs (infection, preeclampsia, depression, heavy bleeding, etc ) RTO in 4/6 weeks Vaginal - Delivery Provider Delivery Physician/CNM: Indu Colón - Diagnosis Labor: Induced Rupture of Membranes Type: Artificial Amniotic Fluid Color: Clear Delivery Events: Nuchal Cord - Procedures Non-surgical Procedures: Amniotomy - Delivery Non-surgical Procedures: Amniotomy EBL: 300 Data ROBERT: 03/29/17 Gestational Age: 41 week(s) and 0 day(s) [place] Delivery Date: 04/03/17 Delivery Time: 14:03 Sex of : Male Score (1 Min): 8 Score (5 Min): 10 Score (10 Min): 10 Discharge Information - Discharge Information Condition: Good Instruction/Follow Up: Four Weeks, Six Weeks
[2017-04-05 08:19] VITALS: BP 112/77; PULSE 59; TEMP 98.2; O2SAT 96
== END 2017-04-05 10:15 | disposition home or self-care (01) | DRG 774 ==
LOC: FLD 05:54 → FOB 18:01
PROVIDERS: ADMIT Obstetrics & Gynecology; ATTEND Obstetrics & Gynecology
PROC: 10E0XZZ Delivery of Products of Conception, External Approach (ICD-10-PCS; principal; 2017-04-03)
PROC: 3E033VJ Introduction of Other Hormone into Peripheral Vein, Percutaneous Approach (ICD-10-PCS; principal; 2017-04-03)
PROC: 10907ZC Drainage of Amniotic Fluid, Therapeutic from Products of Conception, Via Natural or Artificial Opening (ICD-10-PCS; principal; 2017-04-03)
DX: O48.0 Post-term pregnancy (principal); O69.81X0 Labor and delivery complicated by cord around neck, without compression, not applicable or unspecified; O98.513 Other viral diseases complicating pregnancy, third trimester; Z37.0 Single live birth; Z3A.41 41 weeks gestation of pregnancy
CPT/HCPCS: J2370; J3010; J3105